=== PATIENT | female | born 1985 | race African-American/Black ===

== ENCOUNTER 2019-10-18 08:12 | Day surgery (SDC) | payer OTHER ==
[2019-10-18] MEDS ORDERED: METOCLOPRAMIDE 10 MG/2mL INJ ONE (08:37)
[2019-10-18] MEDS ORDERED: NA CIT/CITRIC AC 30 ML ORAL UDC ONE (08:39)
[2019-10-18] MEDS ORDERED: CEFAZOLIN SODIUM 1 GM/VIAL ONE (08:46)
[2019-10-18] MEDS ORDERED: NS 0.9% VIAL 40 ML ONE (08:46)
[2019-10-18] MEDS ORDERED: LIDOCAINE 1% W/EPI 1:100,000 MDV 20 ML VIAL ONE (08:47)
[2019-10-18] MEDS ORDERED: LIDOCAINE 2% MPF 5 ML VIAL ONE (08:47)
[2019-10-18] MEDS ORDERED: Mastisol Adhesive Liq ONE ×2 (08:47→12:15)
[2019-10-18] MEDS ORDERED: propofoL 200 MG/20 ML VIAL IV ONE (08:47)
[2019-10-18] MEDS ORDERED: dexAMETHasone 10 MG/ML VIAL ONE (08:47)
[2019-10-18] MEDS ORDERED: BACITRACIN 50000 UNIT VIAL ONE (08:47)
[2019-10-18] MEDS ORDERED: ONDANSETRON 4 MG/2 ML VIAL ONE ×2 (08:47→14:32)
[2019-10-18] MEDS ORDERED: Ringers Lactate 1,000 ML IV ONE ×2 (08:47→08:49)
[2019-10-18] MEDS ORDERED: FENTANYL CITR 250 MCG/5 ML ONE ×2 (08:47→10:27)
[2019-10-18] MEDS ORDERED: ROCURONIUM 50 MG/5 ML VIAL IV ONE ×2 (08:47→11:02)
[2019-10-18] MEDS ORDERED: MIDAZOLAM HCL 2 MG/2 ML INJ ONE (08:47)
[2019-10-18] MEDS ORDERED: GENTAMICIN SULF 80 MG/2ML INJ ONE (08:47)
[2019-10-18] MEDS ORDERED: SCOPOLAMINE HYDROBROMIDE PATCH TD ONE (08:49)
[2019-10-18] MEDS ORDERED: CEFAZOLIN/SWI 1gm 1 GM/10 ML SYR ONE (08:50)
[2019-10-18] MEDS ORDERED: ESMOLOL HCL 10 ML IV ONE (10:07)
[2019-10-18] MEDS ORDERED: KETOROLAC 30 MG/ML INJ ONE (12:58)
[2019-10-18] MEDS ORDERED: NALOXONE 0.4 MG/ML VIAL ONE (13:27)
[2019-10-18 14:20] VITALS: BP 12/81; TEMP 86; O2SAT 96
[2019-10-18] MEDS ORDERED: CODEINE 30MG/APAP 300MG TAB ONE (14:42)
--- NOTE | 2019-10-18 15:07 | OP ---
Surgeon: Claude Parry MD Fur Dry Cleaner: Go. Preoperative Diagnosis: Breast descent. Postoperative Diagnosis: Breast descent. Procedure Performed: Breast lift. Anesthesia: General. Description Of Procedure: After satisfactory induction of general anesthesia, the chest was prepped with DuraPrep. Dry sterile drapes were applied in the usual manner. A 45 mm template was used to ou tline the right and left areolas. Then scalpel was used to make incision. Transverse incision and c urvilinear incision were made. Intervening skin was de-epithelized with dermabrader or EpiCut. Then the transverse incision was made with electrocautery. Flap was thinned to 1.1 cm, elevated towards the sternum, clavicle, anterior axillary line. Both sides done simultaneously. The patient had exce ss fat, this was excised with electrocautery. Then inferior incision was made, de-epithelized tissue formed into a cone with 2-0 PDS sutures on the right breast. Straps were elevated at 12 o'clock, 1: 30, and 3 o'clock position. The straps were then woven in and out of the pectoralis major muscle, ba ck to the base of the cone, back to the pectoralis muscle, back to base of cone. Sewn to themselves with 2-0 PDS suture. This was done for 12 o'clock and 130 straps. The 3 o'clock strap was sewn over the sternum at the 3 o'clock position with 2-0 Ethibond. Mirror image procedure was done on the lef t side. The wound was temporarily stapled shut. The patient was sat up. Dog ears marked out latera lly and tissue incised. The patient returned supine. Electrocautery used for hemostasis. A MAO 10 w as brought out the axilla, sewn in place with 2-0 silk. The wound was closed in layers with 3-0 Vicr yl subcu, 3-0 PDS running subcuticular, tied in the vertical meridian of the breast. Left side done in an identical manner. Patient was sat up, site for new nipple-areolar complex was marked out. The patient was placed supine and then the tissue cored out, nipple was delivered, sewn with 4-0 PDS, fo llowed by 4-0 PDS running subcuticular. Dressings consisted of tincture of benzoin, Steri-Strips, 5x 5s, fluffs, and Andrew wrap. The patient tolerated the procedure well. The amount removed from the rig ht breast was 82 g, left breast was 86 g. ELINA/MARY Voice ID: [id number] Report ID: [id number]
== END 2019-10-18 17:15 | disposition home or self-care (01) ==
LOC: OR 08:12
PROVIDERS: ATTEND Specialist
PROC: 0HSV0ZZ Reposition Bilateral Breast, Open Approach (ICD-10-PCS; principal; 2019-10-18 09:00)
DX: N64.81 Ptosis of breast (principal); N60.32 Fibrosclerosis of left breast; N60.31 Fibrosclerosis of right breast; E89.0 Postprocedural hypothyroidism; Z85.850 Personal history of malignant neoplasm of thyroid; Z79.899 Other long term (current) drug therapy; F17.200 Nicotine dependence, unspecified, uncomplicated; F12.90 Cannabis use, unspecified, uncomplicated
CPT/HCPCS: 36415; 84703; 88305; 19316; J2704; J2765; J2310; J1580; J2250; J3010 ×2; J1100; J0690 ×2; J7120 ×2; J2405 ×2